=== PATIENT | female | born 1965 | race Caucasian/White ===

== ENCOUNTER 2017-01-08 13:09 | Outpatient (CLI) ==
[2015-09-11 14:15] VITALS: BMI 51.5
== END 2017-01-08 13:10 | disposition home or self-care (01) ==
LOC: LAB 13:09
PROVIDERS: ATTEND Nurse Practitioner
DX: E11.9 Type 2 diabetes mellitus without complications (principal); E55.9 Vitamin D deficiency, unspecified; E66.01 Morbid (severe) obesity due to excess calories
CPT/HCPCS: 36415; 82306; 83036

== ENCOUNTER 2018-12-29 09:47 | Inpatient (IN) ==
--- NOTE | 2018-12-29 11:08 | CT ---
EXAM: CT of the chest without contrast History: Cough, congestion and fever. Comparison: CT abdomen pelvis 01/23/2014 Technique: Multiplanar CT images through the thorax were obtained without the administration of IV c ontrast Findings: Heart size is normal. No pericardial effusion. No thoracic aortic aneurysm. No axillary lymphadenopathy. No pathologically enlarged mediastinal lymph nodes. Evaluation for hilar lymph no kristi is limited due to lack of contrast administration. No pleural fluid and no pneumothorax. Multif ocal bilateral consolidation and worse in the left lung. Bilateral micronodules with tree-in-bud con figuration and worse on the left. Within the visualized upper abdomen, nodular surface contour of the liver. Stable splenosis within t he left upper quadrant. 2.2 cm benign left adrenal adenoma. 3 mm calculus within the left kidney. No acute osseous abnormalities. Sclerotic lesion within the sternal manubrium. Also small sclerotic lesion within the mid sternal body. There are multiple sclerotic lesions within the thoracic verteb ral bodies with the largest seen at T3. Impression: 1. Multifocal bilateral pneumonia and worse on the left. 2. Bilateral micronodules most likely related to the pneumonia but could also be seen with endobronc hial spread of tumor. Follow-up recommended to assure resolution. 3. Sclerotic osseous metastasis. 4. Cirrhotic liver. 5. Benign left adrenal adenoma. 6. Nonobstructing left nephrolithiasis
[2018-12-29] MEDS ORDERED: ZOSYN 4.5 GM 4.5 GM in SODIUM CHLORIDE 100 ML IV STA (11:40)
[2018-12-29] MEDS ORDERED: SODIUM CHLORIDE 1,000 ML IV STA ×2 (11:41→16:20)
[2018-12-29] MEDS ORDERED: DUONEB NEB STA (12:08)
--- NOTE | 2018-12-29 14:31 | CT ---
EXAM: CTA of the chest. History: Pneumonia, elevated D-dimer. Comparison: Chest CT 12/29/2018 Technique: Multiplanar CT images through the thorax were obtained following administration of IV con trast. MIP images and 3-D reconstructions were also provided. Findings: Heart size is upper limits of normal. No pericardial effusion. No thoracic aortic aneury sm. The left greater than right bilateral lung infiltrates are slightly worsening. No pleural fluid and no pneumothorax. There may be early developing interstitial edema. No axillary lymphadenopathy . Mildly enlarged bilateral hilar lymph nodes and subcarinal lymph nodes measuring up to 1 cm could be reactive. No pulmonary arterial filling defects are identified to the proximal segmental branches . The more distal segmental branches and subsegmental branches are not well opacified with contrast material. Within the visualized upper abdomen cirrhotic liver again noted. Stable splenosis. Stable benign le ft adrenal adenoma. 3 mm calculus again seen within the left kidney. No change in the sclerotic oss eous lesions. Impression: 1. No pulmonary embolism. 2. The left greater than right bilateral pneumonia is slightly worsened. 3. Mildly enlarged nonspecific bilateral hilar and subcarinal lymph nodes. 4. Early developing interstitial edema. 5. Cirrhotic liver. 6. No change in the sclerotic osseous lesions suspicious for metastasis
--- NOTE | 2018-12-29 14:57 | ED.PDOC ---
General ED Provider: Dr. COLT MENDOZA Chief Complaint: Respiratory Complaint Stated Complaint: cough flu like symptoms Time Seen by Physician: 10:00 (seen along with pt's nurse ) Information Source: Patient Exam Limitations: No limitations Primary Care Provider: SAKSHI OAKES Nursing and Triage Documentation Reviewed and Agree: Yes Does patient meet sepsis criteria?: No If yes, has appropriate treatment been initiated?: No System Inflammatory Response Syndrome: Not Applicable Sepsis Protocol: For patient's 13 years and over: Temp is 96.8 and below OR 101 and greater Pulse >90 BPM Resp >20/minute Acutely Altered Mental Status Are patient's symptoms suggestive of a new infection, such as: -Pneumonia -Skin, Soft Tissue -Endocarditis -UTI -Bone, Joint Infection -Implantable Device -Acute Abdominal Infection -Wound Infection -Meningitis -Blood Stream Catheter Infection -Unknown Respiratory Complaint Exam - Respiratory Complaint/Exam Symptoms Are: Still present Timing: Constant Initial Severity: Moderate Current Severity: Mild Location: Nose, Throat, Chest Character: Reports: Non-productive cough, Dry cough Review of Systems - Review Of Systems Constitutional: Reports: No symptoms Eyes: Reports: No symptoms Ears, Nose, Mouth, Throat: Reports: No symptoms Respiratory: Reports: No symptoms Cardiac: Reports: No symptoms GI: Reports: No symptoms : Reports: No symptoms Musculoskeletal: Reports: Joint pain (ankle) Skin: Reports: No symptoms Neurological: Reports: No symptoms Endocrine: Reports: No symptoms Hematologic/Lymphatic: Reports: No symptoms All Other Systems: Reviewed and Negative Past Medical History - Past Medical History Previously Healthy: Yes Endocrine: Reports: Dyslipidemia Cardiovascular: Reports: Hypertension Respiratory: Reports: None Hematological: Reports: None Gastrointestinal: Reports: None Genitourinary: Reports: None Neuro/Psych: Reports: Bipolar Disorder Musculoskeletal: Reports: None Cancer: Reports: None Last Menstrual Period: hysterectomy - Surgical History General Surgical History: Reports: None - Family History Family History: Reports: None - Social History Smoking Status: Never smoker Hx Substance Use: No Alcohol Screening: None Physical Exam - Physical Exam Appearance: Well-appearing, No pain distress, Well-nourished Eyes: RAYMUNDO, EOMI, Conjunctiva clear ENT: Ears normal, Nose normal, Oropharynx normal Respiratory: Airway patent, Breath sounds clear, Breath sounds equal, Respirations nonlabored Cardiovascular: RRR, Pulses normal, No rub, No murmur GI/: Soft, Nontender, No masses, Bowel sounds normal, No Organomegaly Musculoskeletal: Limited ROM (ankle) Skin: Warm, Dry, Normal color Neurological: Sensation intact, Motor intact, Reflexes intact, Cranial nerves intact, Alert, Oriented Psychiatric: Affect appropriate, Mood appropriate Critical Care Note - Critical Care Note Total Time (mins): 0 Course - Course Hematology/Chemistry: 12/29/18 10:35 12/29/18 10:35 Orders, Labs, Meds: Lab Review 12/29/18 12/29/18 12/29/18 10:30 10:35 10:35 WBC 18.52 H RBC 4.06 L Hgb 12.0 Hct 35.6 L MCV 87.7 MCH 29.6 MCHC 33.7 RDW Coeff of Corina 14.3 Plt Count 546 H Immature Gran % (Auto) 1.3 Neut % (Auto) 71.3 Lymph % (Auto) 17.4 [place] % (Auto) 9.4 Eos % (Auto) 0.2 Baso % (Auto) 0.4 Immature Gran # (Auto) 0.2 Neut # (Auto) 13.2 H Lymph # (Auto) 3.2 [place] # (Auto) 1.8 Eos # (Auto) 0.0 Baso # (Auto) 0.1 D-Dimer (Manual) Puncture Site O2 Saturation ABG pH ABG pCO2 ABG pO2 ABG HCO3 ABG Total CO2 ABG Base Excess Petey Test O2 Delivery Device FiO2 % Sodium 139.2 Potassium 3.00 L Chloride 99.6 Carbon Dioxide 31.4 H Anion Gap 11.20 BUN 9.6 Creatinine 0.56 L Estimated GFR (MDRD) 114.00 BUN/Creatinine Ratio 17.14 Glucose 109.3 H Lactic Acid Calcium 8.92 Total Bilirubin 0.59 AST 41.4 H ALT 42.9 H Alkaline Phosphatase 252.0 H NT-Pro-B Natriuret Pep Total Protein 7.63 Albumin 3.73 Globulin 3.90 Albumin/Globulin Ratio 0.95 Procalcitonin Influ A Molecular Assay Negative by naat Influ B Molecular Assay Negative by naat 12/29/18 12/29/18 12/29/18 10:35 10:35 10:35 WBC RBC Hgb Hct MCV MCH MCHC RDW Coeff of Corina Plt Count Immature Gran % (Auto) Neut % (Auto) Lymph % (Auto) [place] % (Auto) Eos % (Auto) Baso % (Auto) Immature Gran # (Auto) Neut # (Auto) Lymph # (Auto) [place] # (Auto) Eos # (Auto) Baso # (Auto) D-Dimer (Manual) 1576.73 Puncture Site O2 Saturation ABG pH ABG pCO2 ABG pO2 ABG HCO3 ABG Total CO2 ABG Base Excess Petey Test O2 Delivery Device FiO2 % Sodium Potassium Chloride Carbon Dioxide Anion Gap BUN Creatinine Estimated GFR (MDRD) BUN/Creatinine Ratio Glucose Lactic Acid Calcium Total Bilirubin AST ALT Alkaline Phosphatase NT-Pro-B Natriuret Pep 353.000 H Total Protein Albumin Globulin Albumin/Globulin Ratio Procalcitonin 0.08 Influ A Molecular Assay Influ B Molecular Assay 12/29/18 12/29/18 10:50 11:06 WBC RBC Hgb Hct MCV MCH MCHC RDW Coeff of Corina Plt Count Immature Gran % (Auto) Neut % (Auto) Lymph % (Auto) [place] % (Auto) Eos % (Auto) Baso % (Auto) Immature Gran # (Auto) Neut # (Auto) Lymph # (Auto) [place] # (Auto) Eos # (Auto) Baso # (Auto) D-Dimer (Manual) Puncture Site R rad O2 Saturation 95.0 ABG pH 7.60 H* ABG pCO2 26.6 L ABG pO2 59.0 L* ABG HCO3 26.1 H ABG Total CO2 27 ABG Base Excess 5 H Petey Test + O2 Delivery Device Ra FiO2 % 21.0 Sodium Potassium Chloride Carbon Dioxide Anion Gap BUN Creatinine Estimated GFR (MDRD) BUN/Creatinine Ratio Glucose Lactic Acid 1.17 Calcium Total Bilirubin AST ALT Alkaline Phosphatase NT-Pro-B Natriuret Pep Total Protein Albumin Globulin Albumin/Globulin Ratio Procalcitonin Influ A Molecular Assay Influ B Molecular Assay Orders Category Date Time Status ABG DRAW REQUEST Stat CARDIO 12/29/18 11:06 Completed ABG DRAW REQUEST Stat CARDIO 12/29/18 14:59 Ordered NEBULIZER TREATMENT Stat CARDIO 12/29/18 12:08 Completed NPO REMINDER: IMAGING ONCE CARE 12/29/18 13:27 Completed ABG Stat LAB 12/29/18 11:06 Completed ABG Stat LAB 12/29/18 14:59 Ordered BLOOD CULTURE (ED ONLY) Stat LAB 12/29/18 10:50 Received BLOOD CULTURE Stat LAB 12/29/18 10:53 Received CBC W/ AUTO DIFF Stat LAB 12/29/18 10:35 Completed COMPREHENSIVE METABOLIC PANEL Stat LAB 12/29/18 10:35 Completed D-DIMER Stat LAB 12/29/18 10:35 Completed FLU A/B MOLECULAR Stat LAB 12/29/18 10:30 Completed LACTIC ACID Stat LAB 12/29/18 10:50 Completed MOLECULAR GROUP A STREP Stat LAB 12/29/18 10:30 Completed PRO-BNP [NT-PROBNP] Stat LAB 12/29/18 10:35 Completed PROCALCITONIN Stat LAB 12/29/18 10:35 Completed Ipratropium/Albuterol Neb [Duoneb] MEDS 12/29/18 12:08 Discontinued 1 vial NEB ONCE STA Piperacillin Sodium/Tazobactam [Zosyn 4.5 gm] 4.5 gm MEDS 12/29/18 11:40 Discontinued 0.9 % Sodium Chloride [Sodium Chloride] 100 ml IV ONCE Sodium Chloride 0.9% [Sodium Chloride] 1,000 ml MEDS 12/29/18 11:41 Active IV 125 mls/hr CT CHEST PE PROTOCOL Stat RADS 12/29/18 13:[address] CHEST W/O CONTRAST Stat RADS 12/29/18 10:27 Completed Medications Generic Name Dose Route Start Last Admin Trade Name Freq PRN Reason Stop Dose Admin Sodium Chloride 1,000 mls @ 125 mls/hr 12/29/18 11:41 12/29/18 12:23 Sodium Chloride IV 12/29/18 19:40 125 mls/hr .Q8H STA Administration Discontinued Medications Generic Name Dose Route Start Last Admin Trade Name Freq PRN Reason Stop Dose Admin Albuterol/Ipratropium 1 vial 12/29/18 12:08 12/29/18 12:16 Duoneb NEB 12/29/18 12:09 1 vial ONCE STA Administration Piperacillin Sod/Tazobactam 100 mls @ 100 mls/hr 12/29/18 11:40 12/29/18 12: 23 Sod 4.5 gm/ Sodium Chloride IV 12/29/18 12:39 100 mls/hr ONCE STA Administration Vital Signs: Temp Pulse Resp BP Pulse Ox 12/29/18 09:48 101.5 F H 101 H 22 143/88 H 91 L Departure - Departure Time of Disposition: 15:12 Disposition: HOME SELF-CARE Discharge Problem: Ankle pain, left Qualifiers: Chronicity: chronic Qualified Code(s): M25.572 - Pain in left ankle and joints of left foot; G89.29 - Other chronic pain Instructions: Ankle Sprain (ED) Condition: Good Pt referred to PMD for follow-up: Yes IPMP verified?: No Additional Instructions: Please call your Family Physician as soon as possible to schedule a follow-up appointment. Allergies/Adverse Reactions: Allergies No Known Allergies Allergy (Verified 12/29/18 09:57) Home Medications: Ambulatory Orders Albuterol Sulfate [Albuterol Sulfate Hfa] 2 puff IH PRN PRN 09/11/15 Lisinopril [Zestril] 10 mg PO DAILY 09/11/15 Metformin HCl [Fortamet] 1,000 mg PO BID 09/11/15
[2018-12-29] MEDS ORDERED: VANCOMYCIN 1 GM in SODIUM CHLORIDE 250 ML IV STA (16:18)
[2018-12-29] MEDS ORDERED: LEVAQUIN 500 MG in PREMIX 100 ML D5W 1 BAG IV STA (16:19)
[2018-12-29] MEDS: DUONEB NEB SCH (16:42)
[2018-12-29] MEDS ORDERED: LEVAQUIN 100 ML IV ONE (17:22)
[2018-12-29] MEDS: SODIUM CHLORIDE 0.9%-KCL 20 MEQ 1,000 ML IV SCH (17:28)
[2018-12-29 17:29] VITALS: BMI 45.4
[2018-12-29] MEDS ORDERED: INFUVITE ADULT 10 ML in SODIUM CHLORIDE 0.9%-KCL 20 MEQ 1,000 ML IV STA (19:15)
[2018-12-29] MEDS ORDERED: VISTARIL INJ IM STA (20:27)
[2018-12-29] MEDS ORDERED: ROCEPHIN 2 GM in SODIUM CHLORIDE 100 ML IV SCH (21:30)
[2018-12-30] MEDS: DUONEB NEB SCH ×4 (00:25→18:00)
[2018-12-30] MEDS ORDERED: INFUVITE ADULT IV ONE (02:38)
[2018-12-30] MEDS: SODIUM CHLORIDE 0.9%-KCL 20 MEQ 1,000 ML IV SCH ×2 (06:05→06:06)
[2018-12-30] MEDS: ZESTRIL PO SCH (08:37)
[2018-12-30] MEDS: ROCEPHIN 2 GM in SODIUM CHLORIDE 100 ML IV SCH (09:16)
--- NOTE | 2018-12-30 09:59 | HP ---
DATE OF SERVICE: 12/29/18 CHIEF COMPLAINT: Shortness of breath and fever. SOURCE OF HISTORY: The patient and emergency room notes, triage. HISTORY OF PRESENT ILLNESS: The patient claimed that she was sick about two weeks ago with fever, cough and chilly sensation bordering shaking chills with muscular aches and headaches. The problem seems to get better but the cough persisted until two days ago when she felt bad again with headache, aching and fever as well as shortness of breath. The inhaler that she has did not help the shortness of breath. It was getting worse prompting her visit to the emergency room today. In the emergency room the patient had CBC showing moderate leukocytosis 18,520, neutrophils 13.2 , hemoglobin 12, hematocrit 35.6, platelet count 546,000. Two arterial blood gases were done. FI02 21, 02 sat 91, pH 7.532, pc02 32.9. Earlier the pc02 was 26.6, p02 53, HC03 27.6, total c02 29, base excess +5. CMP - potassium 3.0, sodium chloride normal, c02 31.4, anion gap 11.2, BUN 9.6, creatinine 0.56, EGFR 114. Sugar 109, lactic acid 1.17, AST 41.4, ALT 42.9 slightly elevated alkaline phosphatase 252.0, NT-Pro-BNP 353, procalcitonin normal 0.08. Influenza A and B negative. Group A beta strep, rapid, negative. The initial chest CT showed multifocal bilateral pneumonia worse on the left, bilateral micronodules, sclerotic osseous metastasis, cirrhotic lever, benign left adrenal adenoma, nonobstructing left nephrolithiasis. The patient had a CT scan of the abdomen and pelvis 01/23/14. D. dimer was elevated and so CTA chest was done. No PE noted. Slightly worsened pneumonia on the left, bilateral hilar adenopathy, subcarinal nonspecific, early developing interstitial edema, cirrhotic liver, no change in the sclerotic osseous lesions suspicious for metastasis. No Doppler studies done of the lower extremities. The patient was admitted with a diagnosis of: 1) Bilateral pneumonia, left more than right. 2) Respiratory failure secondary to #1. The patient in 1982, when she was [id number] had an abdominal exploration with removal of a mass and also removal of the spleen. Dr. La was the oncologist involved. She told me that they never made a diagnosis of the tumor that was removed. The patient at that time also had a liver biopsy in 1982. The patient was referred to [facility] and stayed for 10 days and was discharged. The patient claimed to have had a febrile illness five years after the initial surgery, probably 1987, the problem had resolved with no diagnosis as the source of the fever. She also had another episode of the same. The patient had an MRI of the lumbar spine because of lumbar back pain done . Impression: T12-L1 normal. L1-2 normal. L2-3 normal and L3-4 minimal posterior disc bulging and mild facet arthropathy. Retroperitoneal mass/ lymphadenopathy near the aorta. Consider CT scan with IV contrast for full evaluation. CT scan with contrast was done 01/23/14, six days from the MRI. Impression: Retroperitoneal mass concerning for malignancy or metastasis. Further evaluation recommended. Indeterminate hypodense liver lesion, cystic pelvic mass, recommended ultrasound. Spleen is not identified but there are multiple nodules within the upper abdomen which could relate to splenules with small splenic tissue that survived after surgery. Multiple sclerotic osseous lesions most compatible with osseous metastasis, indeterminate 4 mm left lower nodule. This patient had been to [facility], referred by her PCP. She had extensive workup and ended up with laparotomy and possible hysterectomy. She had some problems with anesthesia and so the procedure was shortened and both ovaries and tubes were removed. She still has her uterus. The patient had been diagnosed with diabetes as well as hypertension. The patient never did smoke but she was prescribed Albuterol. Medications prior to this admission consisted of Lisinopril 10 mg tablet daily, Metformin 1000 mg twice a day, Albuterol Sulfate HFA two puffs p.r.n. Not certain about the frequency. ALLERGIES: NKDA FAMILY HISTORY: Mother had congestive heart failure; diabetes in the family and other members had renal disease with failure. Mother had lung carcinoma and . Family history of diabetes in maternal family. SOCIAL HISTORY: The patient is . She never did smoke and drank occasionally. She mentioned that her ex- was an alcoholic. She also had lost 100 lbs. She wanted to have surgical intervention for weight loss but she did not qualify because of the surgeries - splenectomy as well as Orozco's esophagus. She saw her PCP about 4 months ago. ALLERGIES: NKDA REVIEW OF SYSTEMS: CONSTITUTIONAL: The patient had fever and chilly sensations, fatigue. HAT AND CAP PARTS CUTTER HAND: The patient had headache but no ataxia. No syncopal episode and no seizure events. VISUAL: Negative. AUDITORY: No tinnitus, no pain, no drainage. The patient is able to hear adequately. RESPIRATORY: The patient has cough which is repetitive. She had this cough for the last two weeks. It is productive and no hemoptysis. The patient does have shortness of breath beginning two days ago and increasingly worsening. CARDIOVASCULAR: The patient denies any chest pain or palpitation. GASTROINTESTINAL: Appetite is down but the patient denies any dysphagia. She has history of Orozco's esophagus. The patient does have nausea but no vomiting at this time. Denies any abdominal pain or diarrhea. GENITOURINARY: The patient denies any burning on urination or frequency. MUSCULOSKELETAL: The patient has generalized muscular aches. The patient had previous surgery to the right knee when she was 18 years of age. INTEGUMENT: Denies any rash or pruritus or ecchymosis. ENDOCRINE: No polyuria or polydipsia although the patient is a diabetic. She is on Metformin 1,000 mg twice a day. HEMATOLOGIC: The patient had some hematological problems back in 1981. The patient had splenectomy. She was thought to have lymphoma but that did not groover and turner to be. She also had a workup for bone sclerosis indicating metastatic disease and this also was negative. PSYCHIATRIC: Affect appears to be normal. There was a mention of bipolar disorder but this patient had not been on any medication for this problem. PHYSICAL EXAMINATION: GENERAL: 53-year-old female admitted to the hospital because of shortness of breath with bilateral pneumonitis, left more than right on CT. VITAL SIGNS: On presentation to the emergency room, temperature 101.5, pulse 101, blood pressure 143/88, respiratory rate 22, oxygen saturation 91 on room air. She weighed 261 lbs, 4.6 ozs. Height 5'4 in the emergency room. On the floor, the patient did weigh 264 lbs, 15.9 ozs. There is always a difference between the emergency room and the floor most of the time. HEAD: Unremarkable. Scalp: No active dermatitis. Face symmetrical and equal. No facial weakness. No significant tenderness to palpation frontal or maxillary sinus areas. EYES: Pupils are about 5 mm in size, reactive and round. Conjunctivae somewhat slightly pale. Sclerae not icteric. MOUTH: No dentures. Some teeth are missing. THROAT: There is some mucoid discharge in the posterior pharyngeal pabon but there is no redness and no edema. No tumors noted. NECK: No masses. No adenopathies. No bruit. No tenderness. No rigidity. CHEST: Symmetrical and equal with good expansion. LUNGS: Breath sounds are heard, both sides diminished with rales on the left side, practically none on the right. HEART: Audible and regular, slightly tachycardic. ABDOMEN: Scar from the previous surgery. No significant tenderness in the abdomen. Bowel sounds are active No masses, no bruit. EXTERNAL GENITALIA: Not examined at this time. PELVIC/RECTAL: Not done. LOWER EXTREMITIES: Essentially symmetrical and equal. Pedal pulses are present on both feet. UPPER EXTREMITIES: Symmetrical and equal. ASSESSMENT: 1. BILATERAL PNEUMONITIS - COMMUNITY ACQUIRED. 2. ACUTE RESPIRATORY FAILURE SECONDARY TO #1. 3. HISTORY OF DIABETES MELLITUS, TYPE 2. 4. HISTORY OF ELEVATED BMI, LOST 100 LBS. 5. HISTORY OF BRONCHITIS OR COPD, PATIENT IS USING ALBUTEROL INHALER. 6. 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 7. HISTORY OF REMOVAL OF INTRAABDOMINAL MASS, DIAGNOSIS UNDETERMINED. CT FINDINGS OF WHAT APPEARED TO BE OSSEOUS METASTASIS (BONE METASTASIS, WITH NEGATIVE WORKUP). PLAN: 1. Will need records if possible to get from [facility]; if she has records from [facility] and also records from [facility] as well as [facility]. The patient claimed that she was at [facility] once The records from [facility], [place], may be included with the records from [facility]. This patient had been under Dr. La, Unit Control Worker/ Oncologist, no longer practicing. 2. Note: This patient had received Tazobactam 4.5 gm, Sodium Chloride 125 cc/ hr, Lovenox 500 mg intravenously and Vancomycin 1 gm. There is a note on Avelox not given and on Vancomycin there is no notation. 3. This patient will be treated as community acquired pneumonia and will give Rocephin 1 gm intravenously now and 500 mg of Azithromycin for three days and Rocephin at least for a total of 7 days unless the cultures would otherwise indicate that it is not sensitive to both of these medications. There are changes as to when the Rocephin will be given tomorrow at 9 a.m since the patient had already Vancomycin, Levaquin and Zosyn. All these medications will not be continued. The Zithromax will be given at 7 p.m. tomorrow at 500 for the next three days. I talked to the nurse, Leelee, and I reviewed the medications with her on my screen. PROGNOSIS: GUARDED. TIME SPENT: GREATER THAN 65 MINUTES MTDD
[2018-12-30] MEDS: ZITHROMAX 500 MG in SODIUM CHLORIDE 250 ML IV SCH (11:27)
--- NOTE | 2018-12-30 12:14 | US ---
EXAM: Bilateral lower extremity venous Doppler History: Elevated D-dimer, difficulty breathing. Technique: Multiple sonographic images through the bilateral lower extremities were obtained. Color duplex Doppler was used to interrogate vascular flow. Findings: The bilateral common femoral, greater saphenous, profunda, superficial femoral, popliteal, peroneal, posterior tibial and anterior tibial veins demonstrate spontaneous flow with normal compre ssion and normal augmentation. Impression: No sonographic evidence for deep venous thrombosis.
[2018-12-30] MEDS: K-DUR PO SCH ×2 (12:35→16:52)
[2018-12-31] MEDS: DUONEB NEB SCH ×5 (00:05→23:30)
[2018-12-31] MEDS: ROCEPHIN 2 GM in SODIUM CHLORIDE 100 ML IV SCH (09:20)
[2018-12-31] MEDS: ZESTRIL PO SCH (09:21)
[2018-12-31] MEDS: K-DUR PO SCH ×2 (09:21→17:31)
[2018-12-31] MEDS: ZITHROMAX 500 MG in SODIUM CHLORIDE 250 ML IV SCH (10:20)
--- NOTE | 2018-12-31 13:08 | PN ---
DATE OF SERVICE: 12/30/18 OBJECTIVE: The patient this morning is alert and responsive. Temperature early in the morning at 4:53 was 98.3, pulse rate 81, blood pressure 127/77, respiratory rate 20, oxygen saturation 96 with a nebulizer. She is on 2L of nasal cannula when without a nebulizer. LUNGS: Diminished breath sounds, still with rales on the left side. The right is almost clear. HEART: Audible and regular with good tones. Not tachycardic. ABDOMEN: Nontender. Bowel sounds are active. I tried to get the records from [facility], her primary provider; also from [facility] and possibly [facility]. I tried to get some idea on what kind of diagnosis was given at that time in 1982 and also in 2013 on what kind of problems did she run into under anesthesia. JANET
[2019-01-01] MEDS: DUONEB NEB SCH ×4 (05:35→23:40)
[2019-01-01] MEDS: ZITHROMAX 500 MG in SODIUM CHLORIDE 250 ML IV SCH (08:48)
[2019-01-01] MEDS: K-DUR PO SCH ×2 (08:48→17:33)
[2019-01-01] MEDS: ZESTRIL PO SCH (08:48)
[2019-01-01] MEDS: ROCEPHIN 2 GM in SODIUM CHLORIDE 100 ML IV SCH (11:08)
[2019-01-01] MEDS ORDERED: GLUCOPHAGE ONE (17:10)
[2019-01-01] MEDS: GLUCOPHAGE PO SCH (17:33)
[2019-01-02] MEDS: DUONEB NEB SCH ×4 (04:55→23:40)
[2019-01-02] MEDS: GLUCOPHAGE PO SCH ×2 (08:57→17:00)
[2019-01-02] MEDS: K-DUR PO SCH ×2 (08:57→17:00)
[2019-01-02] MEDS: ZESTRIL PO SCH (08:58)
[2019-01-02] MEDS: ZITHROMAX 500 MG in SODIUM CHLORIDE 250 ML IV SCH (08:58)
--- NOTE | 2019-01-02 09:47 | DI ---
Exam: Two views of the chest. Comparison: CT performed 12/29/2018. Reason for exam: Follow-up pneumonia. FINDINGS: Similar appearing consolidation in the left lower lobe with patchy airspace opacities bila terally. No pneumothorax is seen. The cardiac silhouette is unchanged for Impression: Left lower lobe pneumonia. Similar appearance to CT imaging performed on 12/29/2018
[2019-01-02] MEDS ORDERED: LEVAQUIN 750 MG in PREMIX 150 ML D5W 1 BAG IV SCH (18:30)
[2019-01-02] MEDS ORDERED: LEVAQUIN 150 ML IV ONE (20:28)
--- NOTE | 2019-01-02 20:48 | CT ---
EXAM: CT abdomen pelvis without contrast HISTORY: Rising liver enzymes COMPARISON: None TECHNIQUE: CT abdomen pelvis performed without intravenous contrast. Coronal and sagittal reformatt ed images obtained. FINDINGS: Multifocal bibasilar consolidation, left greater than right. No free air. Redemonstratio n of sclerotic osseous lesions. Evaluation organ parenchyma limited without contrast. Liver nodular in contour. Patient status post cholecystectomy. Pancreas unremarkable. Spleen not visualized in multiple nodules in the left upper quadrant , favored to represent splenules. 1.8 cm left adrenal no dule measuring 0 HU, consistent with adenoma. Right is unremarkable. 5 mm nonobstructing left renal calculus. No hydronephrosis. Bladder unremarkable. Uterus unremarkable. Aorta normal in caliber. Mild atherosclerosis. Stomach unremarkable. Surgical clips near the distal stomach region. No di lated loops small bowel. Appendix appears normal. Colon unremarkable. Redemonstration of multiple enlarged retroperitoneal lymph nodes with a few mildly increased in size from 2014. Enlarged mary h epatic and portacaval lymph nodes also present. Some of which also appear increased in size. No asci dorie. Tiny fat-containing periumbilical hernia. IMPRESSION: 1. Cirrhotic configuration of the liver. 2. Bibasilar pneumonia, left greater than right. 3. Redemonstration of retroperitoneal lymphadenopathy, suspicious for malignancy/metastasis.Some of the lymph nodes have mildly increased in size from 2014. Mary hepatic/portacaval lymphadenopathy al so appears increased 4. Redemonstration of osseous sclerotic lesions, suspicious for osseous metastasis. 5. Spleen not identified. Multiple similar appearing left upper quadrant nodules favored to relate to splenules. 6. Benign left adrenal adenoma. 7. Left nephrolithiasis. No hydronephrosis.
[2019-01-03] MEDS: DUONEB NEB SCH ×2 (04:38→11:18)
[2019-01-03 05:07] VITALS: BP 134/79; TEMP 97.7
[2019-01-03] MEDS: GLUCOPHAGE PO SCH (08:35)
[2019-01-03] MEDS: ZESTRIL PO SCH (08:36)
[2019-01-03] MEDS: K-DUR PO SCH (08:36)
--- NOTE | 2019-01-03 11:11 | PN ---
DATE OF SERVICE: 01/01/19 SUBJECTIVE: The patient claimed that she was feeling better. She doesn't appear dyspneic or tachypneic and no cyanosis. She moves quite well. LUNGS: Minimal wheeze, inspiratory. No obvious rales. Breath sounds are diminished HEART: Normal sinus rhythm ABDOMEN: Soft, not tender LOWER EXTREMITIES: No tenderness in the calf muscles. This patient is on Lovenox. VITAL SIGNS: Temperature 98 oral, pulse 93, blood pressure 134/77, respiratory rate 18, oxygen saturation 93 at 2 liters at nasal oxygen. Labs were done today. We will obtain a CBC and CMP tomorrow as well as arterial blood gasses on room. The patient had bilateral pneumonitis on admission left greater than right. That was done 12/29/18. This patient had two chest CT one without contrast and the other one was with contrast after the D-Dimer came back as elevated. The emergency room physician then proceeded to do CTA. The patient's GFR has remained essentially the same. Her A1c was slightly elevated and in good control 6.73. We will see what the AST and ALT as well as alkaline phosphatase on followup Chemistry tomorrow. JANET
--- NOTE | 2019-01-03 13:52 | PN ---
DATE OF SERVICE: 01/02/19 SUBJECTIVE: The patient is alert and oriented time four, not dyspneic or tachypneic. She was still lying down in bed when I walked in. She had relative around. The patient claimed that she is feeling better. She wanting to known whether she can go home. I told her we will see how things are tomorrow. I told her that the chest x-ray still shows the pneumonia. Pneumonia in the left lower lobe. She did not use her oxygen for three hours today and tolerated well. The oxygen saturation without oxygen was 92. I told her that we will take her oxygen tonight and see what happens and we will continue to monitor the oxygen saturation. VITALS: Temperature 98.2, pulse 89, blood pressure 130/56, respiratory rate 14, oxygen saturation 92% without oxygen. The patient at the time of my examination at 18:45pm has nasal oxygen at 2 liters. LUNGS: Clear to auscultation in both sides somewhat diminished breath sounds. No wheezing Inspiratory or expiratory. HEART: Normal sinus rhythm LEGS: No tenderness CONDITION: STABLE. She did eat about 75% of dinner tonight. She had 100% yesterday. Her Influenza A titer is 1:256 and B is negative. The rapid A and B were both negative. The patient should have another titer in about 2.5 weeks from today. JANET
[2019-01-03] MEDS ORDERED: LEVAQUIN 750 MG in PREMIX 150 ML D5W 1 BAG IV SCH (21:00)
--- NOTE | 2019-02-14 09:48 | PN ---
DATE OF SERVICE: 12/31/18 SUBJECTIVE: The patient is alert, oriented, not dyspneic or tachypneic. Oxygen saturation is 96 with 2 liters of oxygen at 2:00pm. VITALS: Temperature 98 orally, pulse 100, blood pressure 140/75, respiratory rate 20. LUNGS: Still has rales on the left sides. None on the right HEART: Audible and regular and slightly tachycardiac WBC is slightly below normal 3,510. Plt count is slightly elevated. Lymphocytes are normal. Slightly lower potassium 3.36 not clinically significant. Blood sugar 148, AST and ALT slightly higher today. The Alkaline phosphatase also is rising. Reason not quite clear but this maybe related to the cirrhosis. This patient had significant problems in the past including a liver biopsy. Acute hepatis panel was requested. Still do not have results of that. Influenza A antibody titer is 1:256 indicating probably a recent infection. MTDD
--- NOTE | 2019-02-14 14:22 | DS ---
DATE OF SERVICE: 01/03/19 PATIENT IDENTIFICATION: 53 year old female who was seen at the emergency room initially on because of cough, fever, muscular aches and fatigue. The patient denied any shaking chills but had severe chilly sensation. The patient had elevated D- Dimer in the emergency room so a CTA was done on top of a previous chest CT. The patient was noted to have bilateral pneumonia left worse than right. The patient also had severe hypoxemia. She was then admitted because of the pneumonitis as well as severe hypoxemia resulting from the pneumonia. The patient was alert and oriented times four, not dyspneic or tachypneic without any cyanosis. LUNGS: Rales on both sides. Very minimal on the right mostly on the left lower 1 /3. HEART: Normal sinus rhythm, somewhat tachycardiac LOWER EXTREMITIES: No significant edema with pedal pulses present. The patient received Tazobactam intervenously in the emergency room. Xopenex 500mg probably not accurate. It might have been Azithromycin 500mg in the emergency room. She also received Vancomycin. This patient while in the hospital was treated with Azithromycin 500mg daily intervenously for three days and Rocephin 2grams intervenously daily. Also did receive Levofloxacin 750mg daily on 01/02/19. Azithromycin was discontinued after three days. The Rocephin was continued until discharge. The patient on admission had a temperature of 101.5, slightly tachycardia. The patient's highest temperature the following day 12/30/18 was 100.4 and since then the temperature had returned to normal and remained normal until discharge. Pulse and the blood pressure remained stable after it had returned towards normal. It was 101 pulse rate initially on admission. The patient's oxygen saturation had varied to 92-96 at room air. On 01/02/19 the patient's oxygen saturation was 95% at room air. The patient at times does not use the nasal cannula and the oxygen saturation with 2 liters of oxygen noted on the chart is 96%. Chest x-ray still showed the pneumonia on the left but auscultation now is clear including the left side this is on 01/02/19. The patient's CBC began at 18,520 and did go down to 14,090. The patient's hgb did go down to 10.9 with administration of intervenous fluids. Plt count remained slightly high, 527-553. Repeat arterial blood gasses on 12/30/18 showed some improvement. The pO2 was 71 from 53, oxygen saturation 96 from 91 both at 21% FiO2. The chemistry showed slight elevation of the AST and ALT. This has risen slightly. The CAT scan of the abdomen and pelvis showed cirrhosis of the liver. The Alkaline phosphatase is elevated 252 initially but did go down and again increased towards discharge at 328. The NT PRO BNP 353 slightly high for her age. Her albumin is low although her total protein is normal and this is probably from the liver cirrhosis. The patient's Influenza A and B rapid, by nuclear amplification was negative however the influenza A antibody quantitative is markedly elevated 1:256. The B is negative. Hepatitis A is negative, Hepatitis B surface is negative and Hepatitis B Core antigen is negative and Hepatitis C is less than 0.1 that is negative. The patient's appetite had stayed fairly well while in the hospital. Breakfast 100%, lunch 100 %, 75% dinner. The patient was discharged on 01/03/19 and her vital signs at 5: 02am showed a temperature of 97.7, pulse 90, blood pressure 134/79, respiratory rate 21 and oxygen saturation 92 at room air. Late evening 01/02/19 at 10:00 in the evening the oxygen saturation was 96% at room air. Blood pressure was 138/81 , respiratory rate 17. The patient at discharge was alert and ambulatory with movement of all extremities. LUNGS: Has improved remarkably with no rales on the right and practically none on the left side which was different from admission. Repeat chest x-ray done 01/02/19 showed left lower pneumonia, similar appearance to the CD imagine. CT scan of the abdomen and pelvis because of rising liver enzymes showed cirrhotic liver bibasilar pneumonia, left greater than right, redemonstration of retroperitoneal lymphadenopathy suspicious for malignancy or metastasis, redemonstration of osseous sclerotic lesions suspicious for metastasis, Spleen not identified multiple similar appearing left upper quadrant nodules favored to relate to splenules. Benign left adrenal adenoma and left nephrolithiasis. No Hydronephrosis. The patient on discharge was advised that she still has pneumonia although her clinical findings has improved. She is prescribed Levofloxacin to be taken for the next few days. She should see Sulma Miller for followup. Blood culture was negative after 5 days, sputum culture was normal [place], gram stain gram positive cocci sputum, urine culture no growth. FINAL DIAGNOSES: 1. Bilateral pneumonia, left more than right, improved 2. 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 The patient had been under the care of boat outboard engine mechanic/oncologist. 3. Liver biopsy in 1982, reason undetermined 4. Bilateral salpingo-oophorectomy, 2013. The patient had some problems with anesthesia so the procedure was shortened 5. Diabetes Mellitus type 2 6. Elevated BMI 7. History of Depression 8. History of surgery to the left knee 9. Cirrhosis of the liver by CT 10.Hepatitis, cause undetermined. Negative Hepatitis Panel 11.Elevated Alkaline phosphatase since admission probably related to the liver problems. 12.Influenza A infection recent probable. Titer 1:256. 13.Microscopic hematuria 5-10 RBC 2+ blood 14.GGT is elevated most likely indicating that the Alkaline phosphatase is secondary to liver problems PROGNOSIS: Guarded. The patient may need to go back to the oncologist although Dr. La has already retired. TIME SPENT: GREATER THAN 30 MINUTES MTDD
== END 2019-01-03 14:13 | disposition home or self-care (01) | DRG 193 ==
LOC: ED 09:47 → MEDSURG B 16:23
PROVIDERS: ADMIT General Practice; ATTEND General Practice
DX: J18.9 Pneumonia, unspecified organism (principal); J96.91 Respiratory failure, unspecified with hypoxia; G89.29 Other chronic pain; M25.572 Pain in left ankle and joints of left foot; E11.9 Type 2 diabetes mellitus without complications; K74.60 Unspecified cirrhosis of liver; N20.0 Calculus of kidney; J44.9 Chronic obstructive pulmonary disease, unspecified; R53.83 Other fatigue; R00.0 Tachycardia, unspecified; R51 Headache; R50.9 Fever, unspecified; R06.02 Shortness of breath
CPT/HCPCS: 36415; 80053; 80074; 81001; 82803; 82962; 82977; 83036; 83605; 83880; 84145; 85025; 85379; 85610; 85730; 86710; 87040; 87070; 87086; 87205; 87502; 87651; 93005; 93010; 94640; 96361; 96365; 99284

== ENCOUNTER 2019-01-24 09:19 | Outpatient (CLI) ==
--- NOTE | 2019-01-24 13:39 | DI ---
EXAM: Chest two views HISTORY: Pneumonia COMPARISON: 01/02/2019 TECHNIQUE: Two views of the chest were performed FINDINGS: Patchy infiltrates in the left mid and lower lung seen laterally, improved There is no pl eural effusion or pneumothorax. The heart is normal in size. The mediastinal contour is normal. Th ere are no acute abnormalities of the bones. IMPRESSION: Improving left-sided pneumonia. Recommend continued radiographic follow-up to ann ferreira
== END 2019-01-24 09:20 | disposition home or self-care (01) ==
LOC: RAD 09:19
PROVIDERS: ATTEND Nurse Practitioner
DX: J18.9 Pneumonia, unspecified organism (principal); D72.829 Elevated white blood cell count, unspecified; G89.29 Other chronic pain; I10 Essential (primary) hypertension; K21.9 Gastro-esophageal reflux disease without esophagitis; K22.70 Barrett's esophagus without dysplasia; M25.561 Pain in right knee; R74.8 Abnormal levels of other serum enzymes
CPT/HCPCS: 36415; 80053; 80061; 83036; 83735; 84443; 85025

== ENCOUNTER 2019-02-28 08:39 | Outpatient (CLI) | END 2019-02-28 08:40 | disposition home or self-care (01) | LOC: LAB 08:39 | PROVIDERS: ATTEND Nurse Practitioner | DX: D72.829 Elevated white blood cell count, unspecified (principal); E11.40 Type 2 diabetes mellitus with diabetic neuropathy, unspecified; I10 Essential (primary) hypertension; J18.9 Pneumonia, unspecified organism; K74.60 Unspecified cirrhosis of liver; R74.8 Abnormal levels of other serum enzymes | CPT/HCPCS: 36415; 80053; 83036; 85025 ==